=== PATIENT | male | born 2000 | race African-American/Black ===

== ENCOUNTER 2020-12-12 11:12 | Emergency (ER) | payer OTHER ==
[~2020-12-12] VITALS: Ht 180.3 cm; Wt 75.3 kg
--- NOTE | 2020-12-12 11:30 | NUR ---
gil, +SI, "i want to overdose on my medications", denies HI,on [address]. Patient a/ox4, breathing even and unlabored, ambulatory, sitter at bedside for safety. Changed into a gown. Security called for wanding.
[2020-12-12 11:46] LABS: BASOPHILS % (AUTO) 0.8 % (0.0-2.0); EOSINOPHILS % (AUTO) 0.5 % (0.0-6.0); HEMATOCRIT 43 % (39-51); LYMPHOCYTES # (AUTO) 1.5 /CMM (0.8-4.8); LYMPHOCYTES % (AUTO) 35.2 % (20.0-44.0); MEAN CORPUSCULAR HGB CONC 32 g/dl (31.0-36.0); MEAN CORPUSCULAR VOLUME 86 fL (80-96); MONOCYTES # (AUTO) 0.4 /CMM (0.1-1.30); MONOCYTES % (AUTO) 9.4 % (2.0-12.0); NEUTROPHILS # (AUTO) 2.3 /CMM (1.8-8.9); NEUTROPHILS % (AUTO) 54.1 % (43.0-81.0); PLATELET COUNT (AUTO) 194 /CMM (150-450); RED BLOOD CELL COUNT(AUTO) 4.99 MIL/uL (4.5-6.0); WHITE BLOOD COUNT (AUTO) 4.3 K/uL (4.3-11.0)
--- NOTE | 2020-12-12 11:50 | NUR ---
patient in bed, asleep but easily arousable. Covid swab sent to lab.
[2020-12-12 11:55] LABS: BILIRUBIN,URINE MODERATE (NEGATIVE); COLOR,URINE YELLOW (YELLOW); LEUKOCYTE ESTERASE ,URINE NEGATIVE (NEGATIVE); NITRITE, URINE NEGATIVE (NEGATIVE); PROTEIN,URINE 30 mg/dl (NEGATIVE); UGLUCOSE NEGATIVE (NEGATIVE); UROBILINOGEN,URINE 0.2 EU/dL (0.2)
[2020-12-12 11:55] LABS: ALANINE AMINOTRANSFERASE 22 U/L (12-78); ALBUMIN 4.1 g/dL (3.4-5.0); ALCOHOL, BLOOD < 3 mg/dL (0-0); ALKALINE PHOSPHATASE 70 U/L (46-116); ASPARTATE AMINOTRANSFERASE 21 U/L (15-37); BILIRUBIN,DIRECT 0.1 mg/dL (0.0-0.2); BILIRUBIN,TOTAL 0.5 mg/dL (0.2-1.0); CALCIUM, SERUM 8.8 mg/dL (8.5-10.1); CARBON DIOXIDE 21 mmol/L (21-32); CHLORIDE 106 mmol/L (98-107); CREATININE 0.9 mg/dL (0.6-1.3); GLUCOSE 79 mg/dL (74-106); POTASSIUM 3.8 mmol/L (3.5-5.1); SODIUM SERUM 142 mmol/L (136-145); TOTAL PROTEIN, SERUM 7.7 g/dL (6.4-8.2); UREA NITROGEN, BLOOD 13 mg/dL (7-18)
[2020-12-12 11:56] LABS: ACETAMINOPHEN < 10 ug/ml (10-30)
--- NOTE | 2020-12-12 12:30 | NUR ---
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 Patient is a 20-year-old, male. SW met with patient at his bedside in the emergency department. Patient was alert and oriented x4. Patient was resting. Per chart, patient was brought in by [employer] on 12/12/20 with complaints of suicidal ideation with a plan to overdose on his medications. Patient stated that he is currently living at a sober living facility in [place]. Patient stated that he was previously living with his family. Patient stated that he currently receives food stamps. Patient stated that he receives some support from his family. SW assessed patients history of mental illness and patient stated that he has a history of Bipolar Depression. SW asked patient if he has a history of substance use and patient stated that he uses marijuana occasionally. Patient denied hallucinations or delusions. Patient denied current suicidal or homicidal ideation. SW offered patient substance use resources. Patient accepted the resources and thanked ERNSETO. Dr. Kramer notified ERNESTO that claim clinician, Vicki Marisacl, has been called to evaluate the patient. Pending evaluation. PLAN: Pending evaluation with claim clinician, ANGE Lozano. SW will remain available as needed. Substance use resources provided included: [facility] ([facility]) ; [facility] [address] [place] [address] ; [facility] [address] [facility] [id number] ; [facility] [address] [facility] [id number] ; [facility] [address] [facility] [phone] ; [facility] [address] [facility] [phone] ; [facility]; [facility] [place]; [facility] [place]; [facility]
[2020-12-12 12:31] LABS: BACTERIA,URINE None seen /HPF (None Seen); RBC,URINE 0-2 /HPF (0-2); SQUAMOUS EPITHELIAL CELL,UR Rare /HPF (None Seen)
[2020-12-12 12:32] LABS: MUCUS,URINE Moderate /LPF (None Seen)
--- NOTE | 2020-12-12 13:23 | NUR ---
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 PATIENT IS ON A HOLD AT THIS TIME.
--- NOTE | 2020-12-12 14:01 | NUR ---
WAITING FOR GURU TO RE-EVALUATE THE PATIENT.
--- NOTE | 2020-12-12 15:24 | NUR ---
GURU AT BEDSIDE FOR EVAL.
--- NOTE | 2020-12-12 17:11 | NUR ---
PATIENT SEEN AND EVALUATED BY GURU AND BROKE THE HOLD. PATIENT A/OX4, BREATHING EVEN AND UNLABORED, NO SOB NOTED. AMBULATORY WITH STEADY GAIT. PER PATIENT MOM ARRANGED UBER TRANSPORTATION. Patient discharged to home in stable condition. Written and verbal after care instructions given. Patient verbalizes understanding of instruction.
[2020-12-12 17:13] VITALS: BP 128/82
== END 2020-12-12 17:13 | disposition home or self-care (01) ==
LOC: ER 11:15
DX: R45.851 Suicidal ideations (principal); F31.9 Bipolar disorder, unspecified; F41.9 Anxiety disorder, unspecified; Z20.822 Contact with and (suspected) exposure to COVID-19
CPT/HCPCS: 36415; 80048; 80076; 80143; 80307; 80320; 81001; 85025; 87086; 87426; 99285; C9803; G0480